=== PATIENT | male | born 1945 | race Caucasian/White ===

== ENCOUNTER 2020-04-27 10:46 | Emergency (ER) | payer MEDICARE, OTHER, SELFPAY ==
[2020-04-27] VITALS (11 sets, daily range): BP systolic 108–128; BP diastolic 62–99; PULSE 69–96; RESP 12–30; O2SAT 90–99; BMI 56.5
--- NOTE | 2020-04-27 11:02 | XRR_ITS ---
PROCEDURE INFORMATION: Exam: XR Chest, 1 View Exam date and time: 04/27/2020 11:18 AM Age: 74 years old Clinical indication: Dyspnea; Patient HX: Covid precautions TECHNIQUE: Imaging protocol: XR of the chest Views: 1 view. COMPARISON: CR Chest 1 [place] [id number] 11/04/2017 8:25 PM FINDINGS: Lungs: Patchy interstitial and alveolar airspace disease in the right mid lung. Follow-up recommended. Pleural space: Unremarkable. No pleural effusion. No pneumothorax. Heart/Mediastinum: Say cardiomegaly Bones/joints: Unremarkable. XR/XR chest 1V portable [id number] IMPRESSION: Patchy interstitial and alveolar airspace disease in the right mid lung. Follow-up recommended. Consider CT if indicated
--- NOTE | 2020-04-27 11:03 | ECG_ITS ---
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 Measurements Intervals [place] Rate: 94 P: 101 [place]: 164 QRS: -53 QRSD: 146 T: 47 QT: 374 QTc: 468 Interpretive Statements SINUS RHYTHM WITH OCCASIONAL VENTRICULAR PREMATURE COMPLEXES WITH FREQUENT SUPRAVENTRICULAR PREMATURE COMPLEXES LEFT AXIS DEVIATION [QRS AXIS < -30] INTRAVENTRICULAR CONDUCTION DELAY [130+ ms QRS DURATION] WARNING: DATA QUALITY MAY AFFECT INTERPRETATION Compared to ECG 11/06/2017 06:02:44 Ventricular premature complex(es) now present Intraventricular conduction delay now present Sinus bradycardia no longer present Left bundle-branch block no longer present Electronically Signed On 04-27-2020 18:31:01 CDT by Rishabh Patel M.D. [email or web address].Fleet Management HoldingOtterologytrinity [facility].Exabre/store/NU/[id number] f
[2020-04-27 11:28] LABS: Basophils % 0.3 %; Eosinophils # 0.1 10^3/uL (0.0-0.8); Eosinophils % 0.6 %; Hematocrit 41.9 % (42.0-52.0); Hemoglobin 12.2 g/dL (11.7-16.6); Lymphocytes # 1.3 10^3/uL (0.8-4.8); Lymphocytes % 16.6 %; Mean Corpuscular HGB Conc 29.1 g/dL (30.0-36.0); Mean Corpuscular Hemoglobin 30.3 pg (28.0-34.0); Mean Corpuscular Volume 104.2 fL (80-94); Mean Platelet Volume 11.1 fL (7.4-10.4); Monocytes # 0.6 10^3/uL (0.2-0.9); Neutrophils # 5.87 10^3/uL (1.8-7.7); Neutrophils % 74.2 %; Nucleated Red Blood Cells % 0 %; Platelet Count 221 10^3/cmm (130-400); Red Blood Count 4.02 10^6/uL (4.1-5.3); Red Cell Distribution Width 13.2 % (12.1-15.1); White Blood Count 7.9 10^3/uL (4.0-10.0)
[2020-04-27 11:31] LABS: ABG PH Result 7.24 (7.35-7.45); Arterial Blood Gas Hematocrit 38.4 % (42-52); Base Excess ABG 14.5 mmol/L (-2.0-2.0); Blood Gas Allen Test Pos; Blood Gas Operator Identificat ED; Blood Gas Sample Site Radial, right; Blood Gas Sample Type Arterial; HCO3 ABG 46.4 mmol/L (22-26); Oxygen Device NRB
[2020-04-27 11:41] LABS: INR 1.04 (0.8-1.2)
[2020-04-27 11:47] LABS: Lactic Sepsis W/Reflex 0.7 mmol/L (0.5-2.2)
[2020-04-27 11:53] LABS: SARS Covid-2 Antigen Negative (Negative)
[2020-04-27 11:56] LABS: Troponin(5th) Baseline 22 ng/L (0-15)
[2020-04-27 12:03] LABS: Alanine Aminotransferase 24 U/L (0-41); Alkaline Phosphatase 66 IU/L (40-130); Anion Gap 10.9 (5-19); Aspartate Amino Transferase 23 U/L (0-40); Blood Urea Nitrogen 24 mg/dL (8-23); Calcium 9.1 mg/dL (8.5-10.5); Chloride 97 mmol/L (98-107); Globulin 3.7 g/dL (1.3-4.6); Glucose 120 mg/dL (65-115); NT Pro B Type Natriuretic Pept 823 pg/mL (0-125); Osmolality Calculated 307 mOsm/kg (285-295); Potassium 4.9 mmol/L (3.5-5.1); Sodium 146 mmol/L (136-145); Total Bilirubin 0.3 mg/dL (0.15-1.2); Total Protein 7.7 g/dL (6.6-8.7)
[2020-04-27 12:05] LABS: Carbon Dioxide 43 mmol/L (22-29)
[2020-04-27 12:26] LABS: Procalcitonin 0.04 ng/mL (0-0.5)
[2020-04-27 12:36] LABS: C Reactive Protein 33.4 mg/L (0.0-4.9)
--- NOTE | 2020-04-27 13:03 | ECG_ITS ---
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 Measurements Intervals [place] Rate: 71 P: 183 [place]: 152 QRS: -20 QRSD: 135 T: 152 QT: 371 QTc: 404 Interpretive Statements SINUS RHYTHM INTRAVENTRICULAR CONDUCTION DELAY [130+ ms QRS DURATION] POSSIBLE ANTERIOR MYOCARDIAL INFARCTION , OF INDETERMINATE AGE [30 ms Q WAVE IN V3/V4, OR R < 0.2 mV IN V4] Compared to ECG 04/27/2020 12:34:18 Myocardial infarct finding now present Ventricular premature complex(es) no longer present Left-axis deviation no longer present Electronically Signed On 04-27-2020 18:38:38 CDT by Rishabh Patel M.D. [email or web address].Targeted Technologiesgreene county hospitalSodaStreamashtabula [facility] hospital.Meshify/store/OM/[id number]
[2020-04-27 13:19] LABS: ABG PH Result 7.28 (7.35-7.45); Arterial Blood Gas Hematocrit 38.7 % (42-52); Base Excess ABG 15.8 mmol/L (-2.0-2.0); Blood Gas Allen Test Pos; Blood Gas Sample Type Arterial; PO2 ABG 79.9 mmHg (80.0-100.0)
[2020-04-27 13:21] LABS: Blood Gas Operator Identificat ED; Blood Gas Sample Site Radial, left; Oxygen Device BIPAP
[2020-04-27 13:29] LABS: Troponin 5 2HR 23.06 ng/L (0-15); Troponin 5 2HR Delta 1.06 ABS# (0-10)
[2020-04-27] MEDS: succinylcholine 20 mg/mL SDV 10mL IVP (13:46)
[2020-04-27 13:48] LABS: Influenza A by IFA Negative (Negative); Influenza B by IFA Negative (Negative)
[2020-04-27] MEDS: vecuronium 10 mg SDV IVP (13:48)
[2020-04-27] MEDS: piperacillin-tazobactam 3.375 GM in sodium chloride 0.9% (plus) 50 ML IV (14:16)
[2020-04-27] MEDS: propofol 1,000 MG/100 ML INJ 9.5 MG IV (14:19)
--- NOTE | 2020-04-27 14:25 | ED_ITS ---
HPI - Altered Mental Status General: Chief Complaint: Altered Mental Status Stated Complaint: AMS, HYPOXIA Time Seen by Provider: 04/27/20 10:56 History of Present Illness: HPI narrative: This patient is a 74-year-old gentleman brought in today by EMS after his called. He has been having increasing shortness of breath and low oxygen levels. His mental status has continued to decrease over the past few days. His says she has continued to turn up his oxygen from his prescribed 3 L/min. She said he has had sepsis and pneumonia and COPD exacerbations in the past which have presented similarly to this. He has not had a fever. He has had some cough. He is a diabetic and his blood sugars have been running low. She has not given him his insulin in the past few days because of blood sugars in the 40s and 50s at times. MD complaint: altered mental status, decreased responsiveness and weakness Onset (ago): day(s) (2) Timing confirmed by: spouse Severity: severe Consistency of symptoms: Getting Worse Context: history of similar presentation, COPD and other (pneumonia) Treatments prior to arrival: oxygen Review of Systems General: Reports: ROS unobtainable due to medical condition and ROS unobtainable due to mental status [facility] ED PFSH: Medical History COPD (chronic obstructive pulmonary disease) Diabetes Dyslipidemia HTN (hypertension) Hypothyroidism Obesity ONDINA (obstructive sleep apnea) Oxygen dependent Pulmonary HTN Surgical History S/P angioplasty with stent S/P bariatric surgery Family History (Updated 09/08/19 @ 11:45 by Tracey Figueroa RN) Father Diabetes Hypertension Mother Hypertension Physical Exam Const: EXAM LIMITATIONS: altered mental status GENERAL APPEARANCE: lethargic NUTRITIONAL APPEARANCE: obese morbidly obese ORIENTATION/CONSCIOUSNESS: Yes lethargic HENMT: HEAD & SCALP: normal to inspection FACE & SINUS: normal facial exam Eye: GENERAL EYE: appearance normal, both eyes and all related structures Neck/C-Spine: COMMON NORMALS: supple, no meningeal signs and no JVD Chest: COMMONS NORMALS: normal inspection of the chest Resp: EFFORT & INSPECTION: Yes tachypneic, Yes respiratory distress, Yes labored and Yes uses accessory muscles AUSCULTATION: diminished lung sounds (severely) Cardio: COMMON NORMALS: no JVD, regular rate, regular rhythm and No murmurs present (Cardio) RATE: regular rate RHYTHM: regular rhythm GI: COMMON NORMALS: Normal to inspection, nondistended, normoactive bowel sounds present, Soft to palpation and non-tender INSPECTION: Yes normal to inspection AUSCULTATION: Yes normoactive bowel sounds PALPATION: Yes Soft to palpation Back/Pelvis: COMMON NORMALS: thoracic and lumbar spine normal to inspection Extremity: COMMON NORMALS: normal to inspection Neuro: SHERRY COMA SCALE: document GCS findings [place] [employer] coma scale eye opening: To sound Sherry coma scale verbal response: Confused Sherry coma scale motor response: Obey commands [place] [employer] coma scale total score: 13 COMMON NORMALS: moves all extremities, no focal motor deficits and no sensory deficits noted SENSORIUM/ORIENTATION: Yes lethargic MENINGEAL SIGNS: Yes no meningeal signs Psych: COMMON NORMALS: mental status grossly normal, cooperative and normal affect Skin: COMMON NORMALS: no rashes or lesions noted and turgor normal GENERAL SKIN EXAM: no rashes or lesions noted and turgor normal Urinary Catheter Management^: Estevez: Cath Placed During This Visit: yes Urinary Catheter Date of Insertion: 04/27/20 Urinary Catheter Time of Insertion: 14:15 Course ED course: Patient was ruled out for COVID. He was placed on BiPAP due to his decreasing mental status and a very high CO2 on his ABG. After about 2 hours on the BiPAP he had not had very significant improvement either at his mental status or in the level of CO2. Discussed this with his and she discussed it with the patient who seemed to understand what she was asking. He agreed to be put on the ventilator. Because we have no beds here working up to transfer him to another facility for ICU care. The intubation was done by Dr. Kemp, the hospitalist here. An 8.0 tube was placed without difficulty. Reevaluation(s): Reevaluation #1: Patient was taken by Naman Hicks at 8 PM. He had done well in the ED. His vital signs remained good on the ventilator. He was sedated with propofol and fentanyl drips. He was given IV antibiotics- Zosyn and vancomycin. He was accepted to the ICU at [facility] by Dr. Kemp. Vital Signs: Vital signs: Vital Signs Pulse Rate 80 04/27/20 19:00 Respiratory Rate 16 04/27/20 19:32 Blood Pressure 113/70 04/27/20 19:00 Pulse Oximetry 99 04/27/20 19:32 MDM - Altered Mental Status Lab Data: Labs: Lab Results 04/27/20 04/27/20 04/27/20 Range/Units 11:02 11:20 11:20 WBC 7.9 (4.0-10.0) 10^3/ uL RBC 4.02 L (4.1-5.3) 10^6/u L Hgb 12.2 (11.7-16.6) g/dL Hct 41.9 L (42.0-52.0) % MCV 104.2 H (80-94) fL MCH 30.3 (28.0-34.0) pg MCHC 29.1 L (30.0-36.0) g/dL RDW 13.2 (12.1-15.1) % Plt Count 221 (130-400) 10^3/c mm MPV 11.1 H (7.4-10.4) fL Neut % (Auto) 74.2 % Lymph % (Auto) 16.6 % [place] % (Auto) 8.0 % Eos % (Auto) 0.6 % Baso % (Auto) 0.3 % Neut # (Auto) 5.87 (1.8-7.7) 10^3/u L Lymph # (Auto) 1.3 (0.8-4.8) 10^3/u L [place] # (Auto) 0.6 (0.2-0.9) 10^3/u L Eos # (Auto) 0.1 (0.0-0.8) 10^3/u L Baso # (Auto) 0.0 (0.0-0.1) 10^3/u L Nucleated RBC % (a uto) 0 % Nucleated RBCs # 0.0 /100WBC PT (12.1-14.9) SECO NDS INR (0.8-1.2) D-Dimer (0-0.59) ug/mIFE U Specimen Type Arterial Sample Site Radial, right ABG pH 7.24 L (7.35-7.45) ABG pCO2 107.0 H* (35-45) mmHg ABG pO2 111.0 H (80.0-100.0) mmH g ABG HCO3 46.4 H (22-26) mmol/L ABG Base Excess 14.5 H (-2.0-2.0) mmol/ L Onesimo Test Pos Hematocrit 38.4 L (42-52) % O2 Delivery Device Nrb O2 Liters/Min 15.0 % FiO2 100.0 % Tidal Volume CPAP cmH20 Circular Knitter Helper ID Ed Sodium (136-145) mmol/L Potassium (3.5-5.1) mmol/L Chloride (98-107) mmol/L Carbon Dioxide (22-29) mmol/L Anion Gap (5-19) BUN (8-23) mg/dL Creatinine (0.7-1.2) mg/dL GFR Calculation Glucose (65-115) mg/dL Calculated Osmolal ity (285-295) mOsm/k g Lactic Acid (0.5-2.2) mmol/L Calcium (8.5-10.5) mg/dL Total Bilirubin (0.15-1.2) mg/dL AST (0-40) U/L ALT (0-41) U/L Alkaline Phosphata se (40-130) IU/L Troponin T Baselin e (0-15) ng/L Troponin T 120 Min [place] (0-15) ng/L Delta Troponin T (0-10) ABS# C-Reactive Protein (0.0-4.9) mg/L NT-Pro-B Natriuret Pep (0-125) pg/mL Total Protein (6.6-8.7) g/dL Albumin (3.5-5.2) g/dL Globulin (1.3-4.6) g/dL Procalcitonin (0-0.5) ng/mL Influenza Type A A g (Negative) Influenza Type B A g (Negative) SARS-CoV-2 Ag (Rap id) Negative (Negative) 04/27/20 04/27/20 04/27/20 Range/Units 11:20 11:20 11:20 WBC (4.0-10.0) 10^3/ uL RBC (4.1-5.3) 10^6/u L Hgb (11.7-16.6) g/dL Hct (42.0-52.0) % MCV (80-94) fL MCH (28.0-34.0) pg MCHC (30.0-36.0) g/dL RDW (12.1-15.1) % Plt Count (130-400) 10^3/c mm MPV (7.4-10.4) fL Neut % (Auto) % Lymph % (Auto) % [place] % (Auto) % Eos % (Auto) % Baso % (Auto) % Neut # (Auto) (1.8-7.7) 10^3/u L Lymph # (Auto) (0.8-4.8) 10^3/u L [place] # (Auto) (0.2-0.9) 10^3/u L Eos # (Auto) (0.0-0.8) 10^3/u L Baso # (Auto) (0.0-0.1) 10^3/u L Nucleated RBC % (a uto) % Nucleated RBCs # /100WBC PT 13.90 (12.1-14.9) SECO NDS INR 1.04 (0.8-1.2) D-Dimer 0.60 H (0-0.59) ug/mIFE U Specimen Type Sample Site ABG pH (7.35-7.45) ABG pCO2 (35-45) mmHg ABG pO2 (80.0-100.0) mmH g ABG HCO3 (22-26) mmol/L ABG Base Excess (-2.0-2.0) mmol/ L Onesimo Test Hematocrit (42-52) % O2 Delivery Device O2 Liters/Min % FiO2 % Tidal Volume CPAP cmH20 Circular Knitter Helper ID Sodium 146 H (136-145) mmol/L Potassium 4.9 (3.5-5.1) mmol/L Chloride 97 L (98-107) mmol/L Carbon Dioxide 43 H* (22-29) mmol/L Anion Gap 10.9 (5-19) BUN 24 H (8-23) mg/dL Creatinine 1.0 (0.7-1.2) mg/dL GFR Calculation Not Reportable Glucose 120 H (65-115) mg/dL Calculated Osmolal ity 307 H (285-295) mOsm/k g Lactic Acid 0.7 (0.5-2.2) mmol/L Calcium 9.1 (8.5-10.5) mg/dL Total Bilirubin 0.3 (0.15-1.2) mg/dL AST 23 (0-40) U/L ALT 24 (0-41) U/L Alkaline Phosphata se 66 (40-130) IU/L Troponin T Baselin e (0-15) ng/L Troponin T 120 Min [place] (0-15) ng/L Delta Troponin T (0-10) ABS# C-Reactive Protein 33.4 H (0.0-4.9) mg/L NT-Pro-B Natriuret Pep 823 H (0-125) pg/mL Total Protein 7.7 (6.6-8.7) g/dL Albumin 4.0 (3.5-5.2) g/dL Globulin 3.7 (1.3-4.6) g/dL Procalcitonin 0.04 (0-0.5) ng/mL Influenza Type A A g (Negative) Influenza Type B A g (Negative) SARS-CoV-2 Ag (Rap id) (Negative) 04/27/20 04/27/20 04/27/20 Range/Units 11:20 12:57 13:00 WBC (4.0-10.0) 10^3/ uL RBC (4.1-5.3) 10^6/u L Hgb (11.7-16.6) g/dL Hct (42.0-52.0) % MCV (80-94) fL MCH (28.0-34.0) pg MCHC (30.0-36.0) g/dL RDW (12.1-15.1) % Plt Count (130-400) 10^3/c mm MPV (7.4-10.4) fL Neut % (Auto) % Lymph % (Auto) % [place] % (Auto) % Eos % (Auto) % Baso % (Auto) % Neut # (Auto) (1.8-7.7) 10^3/u L Lymph # (Auto) (0.8-4.8) 10^3/u L [place] # (Auto) (0.2-0.9) 10^3/u L Eos # (Auto) (0.0-0.8) 10^3/u L Baso # (Auto) (0.0-0.1) 10^3/u L Nucleated RBC % (a uto) % Nucleated RBCs # /100WBC PT (12.1-14.9) SECO NDS INR (0.8-1.2) D-Dimer (0-0.59) ug/mIFE U Specimen Type Sample Site ABG pH (7.35-7.45) ABG pCO2 (35-45) mmHg ABG pO2 (80.0-100.0) mmH g ABG HCO3 (22-26) mmol/L ABG Base Excess (-2.0-2.0) mmol/ L Onesimo Test Hematocrit (42-52) % O2 Delivery Device O2 Liters/Min % FiO2 % Tidal Volume CPAP cmH20 Circular Knitter Helper ID Sodium (136-145) mmol/L Potassium (3.5-5.1) mmol/L Chloride (98-107) mmol/L Carbon Dioxide (22-29) mmol/L Anion Gap (5-19) BUN (8-23) mg/dL Creatinine (0.7-1.2) mg/dL GFR Calculation Glucose (65-115) mg/dL Calculated Osmolal ity (285-295) mOsm/k g Lactic Acid (0.5-2.2) mmol/L Calcium (8.5-10.5) mg/dL Total Bilirubin (0.15-1.2) mg/dL AST (0-40) U/L ALT (0-41) U/L Alkaline Phosphata se (40-130) IU/L Troponin T Baselin e 22 H (0-15) ng/L Troponin T 120 Min [place] 23.06 H (0-15) ng/L Delta Troponin T 1.06 (0-10) ABS# C-Reactive Protein (0.0-4.9) mg/L NT-Pro-B Natriuret Pep (0-125) pg/mL Total Protein (6.6-8.7) g/dL Albumin (3.5-5.2) g/dL Globulin (1.3-4.6) g/dL Procalcitonin (0-0.5) ng/mL Influenza Type A A g Negative (Negative) Influenza Type B A g Negative (Negative) SARS-CoV-2 Ag (Rap id) (Negative) 04/27/20 Range/Units 13:09 WBC (4.0-10.0) 10^3/ uL RBC (4.1-5.3) 10^6/u L Hgb (11.7-16.6) g/dL Hct (42.0-52.0) % MCV (80-94) fL MCH (28.0-34.0) pg MCHC (30.0-36.0) g/dL RDW (12.1-15.1) % Plt Count (130-400) 10^3/c mm MPV (7.4-10.4) fL Neut % (Auto) % Lymph % (Auto) % [place] % (Auto) % Eos % (Auto) % Baso % (Auto) % Neut # (Auto) (1.8-7.7) 10^3/u L Lymph # (Auto) (0.8-4.8) 10^3/u L [place] # (Auto) (0.2-0.9) 10^3/u L Eos # (Auto) (0.0-0.8) 10^3/u L Baso # (Auto) (0.0-0.1) 10^3/u L Nucleated RBC % (a uto) % Nucleated RBCs # /100WBC PT (12.1-14.9) SECO NDS INR (0.8-1.2) D-Dimer (0-0.59) ug/mIFE U Specimen Type Arterial Sample Site Radial, left ABG pH 7.28 L (7.35-7.45) ABG pCO2 99.0 H* (35-45) mmHg ABG pO2 79.9 L (80.0-100.0) mmH g ABG HCO3 47.0 H (22-26) mmol/L ABG Base Excess 15.8 H (-2.0-2.0) mmol/ L Onesimo Test Pos Hematocrit 38.7 L (42-52) % O2 Delivery Device Bipap O2 Liters/Min % FiO2 60.0 % Tidal Volume 0.50 CPAP 10.0 cmH20 Circular Knitter Helper ID Ed Sodium (136-145) mmol/L Potassium (3.5-5.1) mmol/L Chloride (98-107) mmol/L Carbon Dioxide (22-29) mmol/L Anion Gap (5-19) BUN (8-23) mg/dL Creatinine (0.7-1.2) mg/dL GFR Calculation Glucose (65-115) mg/dL Calculated Osmolal ity (285-295) mOsm/k g Lactic Acid (0.5-2.2) mmol/L Calcium (8.5-10.5) mg/dL Total Bilirubin (0.15-1.2) mg/dL AST (0-40) U/L ALT (0-41) U/L Alkaline Phosphata se (40-130) IU/L Troponin T Baselin e (0-15) ng/L Troponin T 120 Min [place] (0-15) ng/L Delta Troponin T (0-10) ABS# C-Reactive Protein (0.0-4.9) mg/L NT-Pro-B Natriuret Pep (0-125) pg/mL Total Protein (6.6-8.7) g/dL Albumin (3.5-5.2) g/dL Globulin (1.3-4.6) g/dL Procalcitonin (0-0.5) ng/mL Influenza Type A A g (Negative) Influenza Type B A g (Negative) SARS-CoV-2 Ag (Rap id) (Negative) Critical Care Time Critical Care Time: Critical Care Time: Yes Total Critical Care Time: 45 Attestation: I provided critical care to this patient in the amount of 45 minutes exclusive of other procedures or other patient care. This involved frequent reevaluations of patient condition, ABG, labs, CXR. Discussion of intubation with . Consultations for transfer. Discharge Plan Discharge Patient Disposition: Xfer Short-Term Hosp Clinical Impression: Acute and chronic respiratory failure with hypercapnia Altered mental status Qualifiers: Altered mental status type: unspecified Qualified Code(s): R41.82 - Altered mental status, unspecified Pneumonia Qualifiers: Pneumonia type: due to unspecified organism Laterality: right Lung location: middle lobe of lung Qualified Code(s): J18.9 - Pneumonia, unspecified organism Condition: Stable Referrals: Jack Camarena MD [Primary Care Provider] - Discharge Date/Time: 04/27/20 19:58 Coding Level of Care Code ED Artificial Flower Maker for g Fwd Exam Comprehensive
--- NOTE | 2020-04-27 17:03 | ECG_ITS ---
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 Measurements Intervals [place] Rate: 78 P: 78 TN: 159 QRS: -62 QRSD: 154 T: 55 QT: 389 QTc: 445 Interpretive Statements SINUS RHYTHM LEFT AXIS DEVIATION [QRS AXIS < -30] LEFT BUNDLE BRANCH BLOCK [120+ ms QRS DURATION, 80+ ms Q/S IN V1/V2, 85+ ms R IN I/aVL/V5/V6] Compared to ECG 04/27/2020 15:04:35 Left-axis deviation now present Left bundle-branch block now present Intraventricular conduction delay no longer present Myocardial infarct finding no longer present Electronically Signed On 04-27-2020 18:39:50 CDT by Rishabh Patel M.D. [email or web address] [facility] Pharmaceuticalsl[facility].BuildCircle/store/OM/[id number]
--- NOTE | 2020-04-27 19:01 | PC.NURSE ---
Report called to Paige Mitchell. Awaiting on EMS
== END 2020-04-27 19:58 | disposition short-term general hospital (02) ==
PROVIDERS: Emergency Provider Emergency Medicine; Family Provider Family Medicine; PCP Family Medicine
DX: R41.82 Altered mental status, unspecified (principal); J18.9 Pneumonia, unspecified organism; J96.22 Acute and chronic respiratory failure with hypercapnia; J44.9 Chronic obstructive pulmonary disease, unspecified; E11.9 Type 2 diabetes mellitus without complications; E78.5 Hyperlipidemia, unspecified; I10 Essential (primary) hypertension
CPT/HCPCS: 12345; 36600; 51702; 71045; 80053; 82803; 83605; 83880; 84145; 84484; 85025; 85378; 85610; 86140; 87040; 87070; 87205; 87426; 87804; 93005; 94002; 94640; 94660; 94799; 96365; 96366; 96375; 96376; 99284; 99285; J0330; J2543; J2704; J3370; J3490; J7050

== ENCOUNTER 2020-05-28 20:54 | Emergency (ER) | payer MEDICARE, OTHER, SELFPAY ==
[2020-05-28 20:56] VITALS: BP 135/85; PULSE 93; RESP 23; TEMP 36.6; O2SAT 99; BMI 54.8
--- NOTE | 2020-05-28 21:05 | PC.NURSE ---
EKG done at 2100 and show to ER doctor
--- NOTE | 2020-05-28 21:33 | XRR_ITS ---
PROCEDURE INFORMATION: Exam: XR Chest, 1 View Exam date and time: 05/28/2020 9:38 PM Age: 74 years old Clinical indication: Shortness of breath; Patient HX: Tight chest, SOB, AGRAWAL, weakness, dizzy; Additional info: Dizzy and SOB TECHNIQUE: Imaging protocol: XR of the chest Views: 1 view. COMPARISON: CR XR chest 1V portable [id number] 04/27/2020 11:05 AM FINDINGS: Lungs: Linear atelectasis or scarring in the left lower lobe. Fullness in the pulmonary vasculature suggesting volume overload in the lungs. Findings in the lungs have improved compared with the previous study. Pleural space: No pleural effusion. No pneumothorax. Heart/Mediastinum: Stable moderate enlargement of the cardiac silhouette. Mediastinal contours are unremarkable. Vasculature: Stable vascular calcifications in the aorta. Stable tortuosity of the aorta. Bones/joints: Unremarkable for age. XR/XR chest 1V portable [id number] IMPRESSION: 1. Fullness in the pulmonary vasculature suggesting volume overload in the lungs. Findings in the lungs have improved compared with the previous study. 2. Incidental/nonacute findings are listed in the report.
--- NOTE | 2020-05-28 21:43 | ECG_ITS ---
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 Measurements Intervals [place] Rate: 88 P: 77 [place]: 180 QRS: -44 QRSD: 162 T: 76 QT: 374 QTc: 454 Interpretive Statements SINUS RHYTHM WITH SINUS ARRHYTHMIA LEFT AXIS DEVIATION [QRS AXIS < -30] LEFT BUNDLE BRANCH BLOCK [120+ ms QRS DURATION, 80+ ms Q/S IN V1/V2, 85+ ms R IN I/aVL/V5/V6] Compared to ECG 04/27/2020 18:10:45 No significant changes Electronically Signed On 05-29-2020 22:08:46 CDT by Joyce Flores M.D. [email or web address].iValidate.[facility].[employer]/store/NU/[id number]
[2020-05-28 21:44] LABS: Basophils % 0.5 %; Eosinophils % 16.3 %; Hematocrit 37.5 % (42.0-52.0); Hemoglobin 11.7 g/dL (11.7-16.6); Lymphocytes # 2.2 10^3/uL (0.8-4.8); Lymphocytes % 36.4 %; Mean Corpuscular HGB Conc 31.2 g/dL (30.0-36.0); Mean Corpuscular Hemoglobin 30.4 pg (28.0-34.0); Mean Corpuscular Volume 97.4 fL (80-94); Mean Platelet Volume 12.3 fL (7.4-10.4); Monocytes # 0.6 10^3/uL (0.2-0.9); Monocytes % 9.9 %; Neutrophils # 2.18 10^3/uL (1.8-7.7); Neutrophils % 36.7 %; Nucleated Red Blood Cells % 0 %; Platelet Count 171 10^3/cmm (130-400); Red Blood Count 3.85 10^6/uL (4.1-5.3); Red Cell Distribution Width 14.2 % (12.1-15.1); White Blood Count 5.9 10^3/uL (4.0-10.0)
--- NOTE | 2020-05-28 21:44 | ED_ITS ---
Documented by User: Darby Humphries MD, [facility] [place]/29/[place] 11:37 HPI - General Adult General: Chief complaint: General Medical Stated complaint: gen weakness Time Seen by Provider: 05/28/20 21:28 Source: patient and family Mode of arrival: EMS Limitations: no limitations History of Present Illness: HPI narrative: Patient is an obese 74-year-old gentleman with a history of hypertension, diabetes, congestive heart failure with ejection fraction of about 25%, atrial fibrillation who was admitted about a month ago at [facility] in [place] where he was managed as a case of pneumonia. At that time he was sick enough to be intubated and was placed in the ICU was for about 12 days. The patient is scheduled for defibrillator placement. For the last few days he has had increased weakness, leg swelling, weight gain, dizziness. The dizziness got much worse tonight. He also had associated headache. He has also had increased orthopnea. Associated symptoms: Reports headache(s) and malaise; Deny dyspnea, nausea, rash, palpitations or vomiting Review of Systems General: Reports: 10 or more systems reviewed and unremarkable except in HPI and below Const: Reports: fatigue and malaise; Denies: fever(s), chills or body aches Eyes: Denies: change in vision or blurry vision ENMT: Denies: throat pain, enlarged tonsils, odynophagia, hoarseness, mouth pain or swelling of lips/tongue Card: Reports: swelling of feet/ankles; Denies: palpitations, irregular heart rhythm or edema Resp: Denies: dyspnea, productive cough or non-productive cough GI: Denies: abdominal pain, nausea or vomiting : Denies: flank pain, dysuria, urinary frequency, urinary urgency or urinary hesitancy Musc: Denies: neck pain, back pain or extremity swelling Skin/Breast: Denies: rash, pruritus or erythema Neuro: Reports: headache(s) and dizziness; Denies: numbness in extremities or weakness in extremities Endo: Denies: polyuria, polydipsia or tired all the time PENDING SALE TO [facility] ED PFSH: Medical History COPD (chronic obstructive pulmonary disease) Diabetes Dyslipidemia HTN (hypertension) Hypothyroidism Obesity ONDINA (obstructive sleep apnea) Oxygen dependent Pulmonary HTN Surgical History S/P angioplasty with stent S/P bariatric surgery Family History Father Diabetes Hypertension Mother Hypertension Physical Exam Const: COMMON NORMALS: no acute distress, average body habitus, patient oriented x3, no limitations, healthy appearing, alert and well nourished HENMT: COMMON NORMALS: normocephalic, atraumatic and moist oral mucous membranes HEAD & SCALP: normocephalic and atraumatic Neck/C-Spine: COMMON NORMALS: full ROM, supple, no meningeal signs, no JVD and No carotid bruits Resp: COMMON NORMALS: normal respiratory effort, No retractions, No use of accessory muscles, clear to auscultation bilaterally and percussion normal AUSCULTATION: clear to auscultation bilaterally and diminished lung sounds PERCUSSION: percussion normal Cardio: COMMON NORMALS: no JVD, regular rate, regular rhythm, S1 normal heart sound present, S2 normal heart sound present, No gallops present (Cardio), No clicks present (Cardio), No murmurs present (Cardio), No rub (Cardio) and Peripheral pulses 2+ throughout RATE: regular rate RHYTHM: regular rhythm HEART SOUNDS: S1 normal heart sound present and S2 normal heart sound present PERIPHERAL PULSES: Peripheral pulses 2+ throughout GI: COMMON NORMALS: Normal to inspection, nondistended, normoactive bowel sounds present, Soft to palpation, non-tender, No hepatosplenomegaly present, no masses and no bruits PALPATION: Yes Soft to palpation and Yes No hepatosplenomegaly present Extremity: COMMON NORMALS: normal to inspection, full ROM, capillary refill normal and no calf tenderness GENERAL: Yes edema Neuro: COMMON NORMALS: patient oriented x3 SENSORIUM/ORIENTATION: Yes alert MENINGEAL SIGNS: Yes no meningeal signs Skin: COMMON NORMALS: no rashes or lesions noted, no wounds, turgor normal, no jaundice, no petechiae and no mottling GENERAL SKIN EXAM: no rashes or lesions noted and turgor normal Course Vital Signs: Vital signs: Vital Signs Temperature 97.9 F 05/28/20 20:56 Pulse Rate 78 05/29/20 00:56 Respiratory Rate 18 05/29/20 00:56 Blood Pressure 142/83 05/29/20 00:56 Pulse Oximetry 98 05/29/20 00:56 [facility] - General Adult Lab Data: Labs: Lab Results 05/28/20 05/28/20 05/28/20 Range/Units 21:00 21:00 21:00 WBC 5.9 (4.0-10.0) 10^3/ uL RBC 3.85 L (4.1-5.3) 10^6/u L Hgb 11.7 (11.7-16.6) g/dL Hct 37.5 L (42.0-52.0) % MCV 97.4 H (80-94) fL MCH 30.4 (28.0-34.0) pg MCHC 31.2 (30.0-36.0) g/dL RDW 14.2 (12.1-15.1) % Plt Count 171 (130-400) 10^3/c mm MPV 12.3 H (7.4-10.4) fL Neut % (Auto) 36.7 % Lymph % (Auto) 36.4 % Radford % (Auto) 9.9 % Eos % (Auto) 16.3 % Baso % (Auto) 0.5 % Neut # (Auto) 2.18 (1.8-7.7) 10^3/u L Lymph # (Auto) 2.2 (0.8-4.8) 10^3/u L Radford # (Auto) 0.6 (0.2-0.9) 10^3/u L Eos # (Auto) 1.0 H (0.0-0.8) 10^3/u L Baso # (Auto) 0.0 (0.0-0.1) 10^3/u L Nucleated RBC % (a uto) 0 % Nucleated RBCs # 0.0 /100WBC Sodium 139 (136-145) mmol/L Potassium 4.7 (3.5-5.1) mmol/L Chloride 99 (98-107) mmol/L Carbon Dioxide 28 (22-29) mmol/L Anion Gap 16.7 (5-19) BUN 17 (8-23) mg/dL Creatinine 1.1 (0.7-1.2) mg/dL GFR Calculation Not Reportable Glucose 198 H (65-115) mg/dL Calculated Osmolal ity 295 (285-295) mOsm/k g Calcium 9.5 (8.5-10.5) mg/dL Magnesium 2.4 H (1.7-2.3) mg/dL Total Bilirubin 0.2 (0.15-1.2) mg/dL AST 24 (0-40) U/L ALT 17 (0-41) U/L Alkaline Phosphata se 73 (40-130) IU/L Troponin T Gen 5 n g/L Cancelled Troponin T Baselin e (0-15) ng/L Troponin T 120 Min [place] (0-15) ng/L Delta Troponin T (0-10) ABS# NT-Pro-B Natriuret Pep (0-125) pg/mL Total Protein 6.6 (6.6-8.7) g/dL Albumin 3.9 (3.5-5.2) g/dL Globulin 2.7 (1.3-4.6) g/dL 05/28/20 05/28/20 05/28/20 Range/Units 21:00 21:00 23:59 WBC (4.0-10.0) 10^3/ uL RBC (4.1-5.3) 10^6/u L Hgb (11.7-16.6) g/dL Hct (42.0-52.0) % MCV (80-94) fL MCH (28.0-34.0) pg MCHC (30.0-36.0) g/dL RDW (12.1-15.1) % Plt Count (130-400) 10^3/c mm MPV (7.4-10.4) fL Neut % (Auto) % Lymph % (Auto) % Radford % (Auto) % Eos % (Auto) % Baso % (Auto) % Neut # (Auto) (1.8-7.7) 10^3/u L Lymph # (Auto) (0.8-4.8) 10^3/u L [place]ford # (Auto) (0.2-0.9) 10^3/u L Eos # (Auto) (0.0-0.8) 10^3/u L Baso # (Auto) (0.0-0.1) 10^3/u L Nucleated RBC % (a uto) % Nucleated RBCs # /100WBC Sodium (136-145) mmol/L Potassium (3.5-5.1) mmol/L Chloride (98-107) mmol/L Carbon Dioxide (22-29) mmol/L Anion Gap (5-19) BUN (8-23) mg/dL Creatinine (0.7-1.2) mg/dL GFR Calculation Glucose (65-115) mg/dL Calculated Osmolal ity (285-295) mOsm/k g Calcium (8.5-10.5) mg/dL Magnesium (1.7-2.3) mg/dL Total Bilirubin (0.15-1.2) mg/dL AST (0-40) U/L ALT (0-41) U/L Alkaline Phosphata se (40-130) IU/L Troponin T Gen 5 n g/L Troponin T Baselin e 41 H (0-15) ng/L Troponin T 120 Min [place] 43.55 H (0-15) ng/L Delta Troponin T 2.55 (0-10) ABS# NT-Pro-B Natriuret Pep 374 H (0-125) pg/mL Total Protein (6.6-8.7) g/dL Albumin (3.5-5.2) g/dL Globulin (1.3-4.6) g/dL Discharge Plan Discharge Patient Disposition: Home Clinical Impression: Lower extremity edema CHF (congestive heart failure) Qualifiers: Heart failure type: unspecified Heart failure chronicity: chronic Qualified Code(s): I50.9 - Heart failure, unspecified Condition: Stable Prescriptions: New metolazone 10 mg tablet 10 mg PO DAILY Qty: 10 RF: 0 No Action calcium 1 tab PO DAILY RF: 0 potassium chloride [Klor-Con 10] 10 mEq tablet extended release 10 meq PO BID RF: 0 pravastatin 20 mg tablet 20 mg PO DAILY RF: 0 carvedilol 25 mg tablet 25 mg PO BID RF: 0 furosemide 80 mg tablet 80 mg PO BID RF: 0 metformin 1,000 mg tablet 1,000 mg PO BID RF: 0 levothyroxine 88 mcg capsule 88 mcg PO DAILY RF: 0 pantoprazole 40 mg tablet,delayed release (DR/EC) 40 mg PO DAILY RF: 0 aspirin [Adult Low Dose Aspirin] 81 mg tablet,delayed release (DR/EC) 81 mg PO DAILY RF: 0 vitamin B complex [B Complex-Vitamin B12] Tablet 1 tab PO DAILY RF: 0 cholecalciferol (vitamin D3) 4,000 unit capsule 4,000 unit PO DAILY RF: 0 insulin lispro [Humalog U-100 Insulin] 100 unit/mL solution 1 sliding scale dose SUBCUT DAILY RF: 0 Lantus U-100 Insulin 100 unit/mL solution See Rx Instructions SUBCUT DAILY RF: 0 nitroglycerin [Nitrostat] 0.4 mg tablet, sublingual 0.4 mg SUBLINGUAL Q5M PRN (Reason: Chest Pain) RF: 0 Discharge Orders: Discharge Order (Routine); Ordered 05/29/20 Ordered By: Henrry Vieira Referrals: Jack Camarena MD [Primary Care Provider] - 4-7 days Discharge Diet: Advance as tolerated and Low Salt Discharge Activity: Increase activity as tolerated Patient Instructions: Heart Failure (ED), Leg Edema (ED) Activity Restrictions/Additional Instructions: Take the prescribed medication for the next 5 days top of your normal medications, then stop it. You may find that elevation of the legs helps significantly with swelling, as can compression stockings. Return for increasing shortness of breath despite treatment, chest discomfort, other concerning symptoms Discharge Date/Time: 05/29/20 00:57 Coding Level of Care Code ED Manager Roofing for Chg Fwd Exam Comprehensive Documented by User: Henrry Vieira DO 05/29/20 01:25 HPI - General Adult General: Chief complaint: General Medical Stated complaint: gen weakness Time Seen by Provider: 05/28/20 21:28 PENDING SALE TO [facility] ED PFSH: Medical History COPD (chronic obstructive pulmonary disease) Diabetes Dyslipidemia HTN (hypertension) Hypothyroidism Obesity ONDINA (obstructive sleep apnea) Oxygen dependent Pulmonary HTN Surgical History S/P angioplasty with stent S/P bariatric surgery Family History Father Diabetes Hypertension Mother Hypertension Course Vital Signs: Vital signs: Vital Signs Temperature 97.9 F 05/28/20 20:56 Pulse Rate 78 05/29/20 00:56 Respiratory Rate 18 05/29/20 00:56 Blood Pressure 142/83 05/29/20 00:56 Pulse Oximetry 98 05/29/20 00:56 MDM - General Adult MDM Narrative: Medical decision making narrative: 74-year-old male checked out to me by Dr. Humphries at shift change. This gentleman has a recent admission at an outside facility for heart failure. He reportedly has an EF of 25% or so. He is on what appears to be 160 mg of Lasix daily. He presents with shortness of breath. His BNP is not significantly elevated at this time. He is not requiring oxygen. he will be given an extra dose of Lasix here, and sent home on metolazone for 5 days to augment his Lasix. He will return for worsening shortness of breath. 82-year-old male with right Lab Data: Labs: Lab Results 05/28/20 05/28/20 05/28/20 Range/Units 21:00 21:00 21:00 WBC 5.9 (4.0-10.0) 10^3/ uL RBC 3.85 L (4.1-5.3) 10^6/u L Hgb 11.7 (11.7-16.6) g/dL Hct 37.5 L (42.0-52.0) % MCV 97.4 H (80-94) fL MCH 30.4 (28.0-34.0) pg MCHC 31.2 (30.0-36.0) g/dL RDW 14.2 (12.1-15.1) % Plt Count 171 (130-400) 10^3/c mm MPV 12.3 H (7.4-10.4) fL Neut % (Auto) 36.7 % Lymph % (Auto) 36.4 % Radford % (Auto) 9.9 % Eos % (Auto) 16.3 % Baso % (Auto) 0.5 % Neut # (Auto) 2.18 (1.8-7.7) 10^3/u L Lymph # (Auto) 2.2 (0.8-4.8) 10^3/u L [place]ford # (Auto) 0.6 (0.2-0.9) 10^3/u L Eos # (Auto) 1.0 H (0.0-0.8) 10^3/u L Baso # (Auto) 0.0 (0.0-0.1) 10^3/u L Nucleated RBC % (a uto) 0 % Nucleated RBCs # 0.0 /100WBC Sodium 139 (136-145) mmol/L Potassium 4.7 (3.5-5.1) mmol/L Chloride 99 (98-107) mmol/L Carbon Dioxide 28 (22-29) mmol/L Anion Gap 16.7 (5-19) BUN 17 (8-23) mg/dL Creatinine 1.1 (0.7-1.2) mg/dL GFR Calculation Not Reportable Glucose 198 H (65-115) mg/dL Calculated Osmolal ity 295 (285-295) mOsm/k g Calcium 9.5 (8.5-10.5) mg/dL Magnesium 2.4 H (1.7-2.3) mg/dL Total Bilirubin 0.2 (0.15-1.2) mg/dL AST 24 (0-40) U/L ALT 17 (0-41) U/L Alkaline Phosphata se 73 (40-130) IU/L Troponin T Gen 5 n g/L Cancelled Troponin T Baselin e (0-15) ng/L Troponin T 120 Min [place] (0-15) ng/L Delta Troponin T (0-10) ABS# NT-Pro-B Natriuret Pep (0-125) pg/mL Total Protein 6.6 (6.6-8.7) g/dL Albumin 3.9 (3.5-5.2) g/dL Globulin 2.7 (1.3-4.6) g/dL 05/28/20 05/28/20 05/28/20 Range/Units 21:00 21:00 23:59 WBC (4.0-10.0) 10^3/ uL RBC (4.1-5.3) 10^6/u L Hgb (11.7-16.6) g/dL Hct (42.0-52.0) % MCV (80-94) fL MCH (28.0-34.0) pg MCHC (30.0-36.0) g/dL RDW (12.1-15.1) % Plt Count (130-400) 10^3/c mm MPV (7.4-10.4) fL Neut % (Auto) % Lymph % (Auto) % Radford % (Auto) % Eos % (Auto) % Baso % (Auto) % Neut # (Auto) (1.8-7.7) 10^3/u L Lymph # (Auto) (0.8-4.8) 10^3/u L [place] # (Auto) (0.2-0.9) 10^3/u L Eos # (Auto) (0.0-0.8) 10^3/u L Baso # (Auto) (0.0-0.1) 10^3/u L Nucleated RBC % (a uto) % Nucleated RBCs # /100WBC Sodium (136-145) mmol/L Potassium (3.5-5.1) mmol/L Chloride (98-107) mmol/L Carbon Dioxide (22-29) mmol/L Anion Gap (5-19) BUN (8-23) mg/dL Creatinine (0.7-1.2) mg/dL GFR Calculation Glucose (65-115) mg/dL Calculated Osmolal ity (285-295) mOsm/k g Calcium (8.5-10.5) mg/dL Magnesium (1.7-2.3) mg/dL Total Bilirubin (0.15-1.2) mg/dL AST (0-40) U/L ALT (0-41) U/L Alkaline Phosphata se (40-130) IU/L Troponin T Gen 5 n g/L Troponin T Baselin e 41 H (0-15) ng/L Troponin T 120 Min [place] 43.55 H (0-15) ng/L Delta Troponin T 2.55 (0-10) ABS# NT-Pro-B Natriuret Pep 374 H (0-125) pg/mL Total Protein (6.6-8.7) g/dL Albumin (3.5-5.2) g/dL Globulin (1.3-4.6) g/dL Discharge Plan Discharge Patient Disposition: Home Clinical Impression: Lower extremity edema CHF (congestive heart failure) Qualifiers: Heart failure type: unspecified Heart failure chronicity: chronic Qualified Code(s): I50.9 - Heart failure, unspecified Condition: Stable Prescriptions: New metolazone 10 mg tablet 10 mg PO DAILY Qty: 10 RF: 0 No Action calcium 1 tab PO DAILY RF: 0 potassium chloride [Klor-Con 10] 10 mEq tablet extended release 10 meq PO BID RF: 0 pravastatin 20 mg tablet 20 mg PO DAILY RF: 0 carvedilol 25 mg tablet 25 mg PO BID RF: 0 furosemide 80 mg tablet 80 mg PO BID RF: 0 metformin 1,000 mg tablet 1,000 mg PO BID RF: 0 levothyroxine 88 mcg capsule 88 mcg PO DAILY RF: 0 pantoprazole 40 mg tablet,delayed release (DR/EC) 40 mg PO DAILY RF: 0 aspirin [Adult Low Dose Aspirin] 81 mg tablet,delayed release (DR/EC) 81 mg PO DAILY RF: 0 vitamin B complex [B Complex-Vitamin B12] Tablet 1 tab PO DAILY RF: 0 cholecalciferol (vitamin D3) 4,000 unit capsule 4,000 unit PO DAILY RF: 0 insulin lispro [Humalog U-100 Insulin] 100 unit/mL solution 1 sliding scale dose SUBCUT DAILY RF: 0 Lantus U-100 Insulin 100 unit/mL solution See Rx Instructions SUBCUT DAILY RF: 0 nitroglycerin [Nitrostat] 0.4 mg tablet, sublingual 0.4 mg SUBLINGUAL Q5M PRN (Reason: Chest Pain) RF: 0 Discharge Orders: Discharge Order (Routine); Ordered 05/29/20 Ordered By: Henrry Vieira Referrals: Jack Camarena MD [Primary Care Provider] - 4-7 days Discharge Diet: Advance as tolerated and Low Salt Discharge Activity: Increase activity as tolerated Patient Instructions: Heart Failure (ED), Leg Edema (ED) Activity Restrictions/Additional Instructions: Take the prescribed medication for the next 5 days top of your normal medications, then stop it. You may find that elevation of the legs helps significantly with swelling, as can compression stockings. Return for increasing shortness of breath despite treatment, chest discomfort, other concerning symptoms Discharge Date/Time: 05/29/20 00:57 Coding Level of Care Code ED Manager Roofing for Chg Fwd Exam Comprehensive
[2020-05-28 21:55] VITALS: BP 140/85; PULSE 80; RESP 18; O2SAT 98
[2020-05-28 22:02] LABS: Alanine Aminotransferase 17 U/L (0-41); Albumin Level 3.9 g/dL (3.5-5.2); Alkaline Phosphatase 73 IU/L (40-130); Blood Urea Nitrogen 17 mg/dL (8-23); Calcium 9.5 mg/dL (8.5-10.5); Carbon Dioxide 28 mmol/L (22-29); Chloride 99 mmol/L (98-107); Globulin 2.7 g/dL (1.3-4.6); Glucose 198 mg/dL (65-115); Magnesium 2.4 mg/dL (1.7-2.3); Osmolality Calculated 295 mOsm/kg (285-295); Sodium 139 mmol/L (136-145); Total Bilirubin 0.2 mg/dL (0.15-1.2); Total Protein 6.6 g/dL (6.6-8.7)
[2020-05-28 22:09] LABS: Anion Gap 16.7 (5-19); Aspartate Amino Transferase 24 U/L (0-40); Potassium 4.7 mmol/L (3.5-5.1)
[2020-05-28 22:16] LABS: Troponin(5th) Baseline 41 ng/L (0-15)
[2020-05-28 22:24] LABS: NT Pro B Type Natriuretic Pept 374 pg/mL (0-125)
--- NOTE | 2020-05-28 23:43 | ECG_ITS ---
[facility] Test Date: 2020-05-28 Pat Name: Fred Lawson Department: Room: Gender: Male Lab Tester: : 1945 Requested By: Darby Humphries I Order Number: [id number] Gilda MD: Joyce Flores M.D. Measurements Intervals [place] Rate: 71 P: 76 OR: 175 QRS: -44 QRSD: 158 T: 68 QT: 400 QTc: 436 Interpretive Statements SINUS RHYTHM LEFT AXIS DEVIATION [QRS AXIS < -30] LEFT BUNDLE BRANCH BLOCK [120+ ms QRS DURATION, 80+ ms Q/S IN V1/V2, 85+ ms R IN I/aVL/V5/V6] Compared to ECG 04/27/2020 18:10:45 No significant changes Electronically Signed On 05-29-2020 22:14:44 CDT by Joyce Flores M.D. [id number]
[2020-05-29 00:23] LABS: Troponin 5 2HR 43.55 ng/L (0-15); Troponin 5 2HR Delta 2.55 ABS# (0-10)
[2020-05-29 00:56] VITALS: BP 142/83; PULSE 78; RESP 18; O2SAT 98
== END 2020-05-29 00:57 | disposition home or self-care (01) ==
PROVIDERS: Family Medicine; Emergency Provider Emergency Medicine; Family Provider Family Medicine; PCP Family Medicine
DX: I11.0 Hypertensive heart disease with heart failure (principal); I50.9 Heart failure, unspecified; R60.0 Localized edema; Z79.82 Long term (current) use of aspirin; Z79.4 Long term (current) use of insulin; J44.9 Chronic obstructive pulmonary disease, unspecified; E11.9 Type 2 diabetes mellitus without complications; E78.5 Hyperlipidemia, unspecified
CPT/HCPCS: 12345; 71045; 80053; 83735; 83880; 84484; 85025; 93005; 96374; 99283

== ENCOUNTER → 2020-06-01 16:17 | Outpatient (BNVA) | payer MEDICARE, OTHER, SELFPAY | PROVIDERS: Family Provider Family Medicine; PCP Family Medicine; Visit Provider Internal Medicine Cardiovascular Disease | DX: I50.9 Heart failure, unspecified (principal) | CPT/HCPCS: 80048 ==

== ENCOUNTER → 2020-06-10 16:02 | Outpatient (BNVA) | payer MEDICARE, OTHER, SELFPAY | PROVIDERS: Family Provider Family Medicine; PCP Family Medicine; Visit Provider Nurse Practitioner Family | DX: I42.8 Other cardiomyopathies (principal) | CPT/HCPCS: 80048 ==

== ENCOUNTER → 2020-06-16 10:22 | Outpatient (BNVA) | payer MEDICARE, OTHER, SELFPAY | PROVIDERS: Family Provider Family Medicine; PCP Family Medicine; Visit Provider Internal Medicine Cardiovascular Disease | DX: E11.9 Type 2 diabetes mellitus without complications (principal); I95.1 Orthostatic hypotension | CPT/HCPCS: 80048 ==

== ENCOUNTER → 2020-06-23 13:39 | Outpatient (BNVA) | payer MEDICARE, OTHER, SELFPAY | PROVIDERS: Family Provider Family Medicine; PCP Family Medicine; Referring Provider Internal Medicine Cardiovascular Disease; Visit Provider Internal Medicine | DX: E03.9 Hypothyroidism, unspecified (principal); E11.22 Type 2 diabetes mellitus with diabetic chronic kidney disease; N18.30 Chronic kidney disease, stage 3 unspecified; E11.40 Type 2 diabetes mellitus with diabetic neuropathy, unspecified; E66.01 Morbid (severe) obesity due to excess calories; Z68.43 Body mass index [BMI] 50.0-59.9, adult; I10 Essential (primary) hypertension | CPT/HCPCS: 99204 ==

== ENCOUNTER → 2020-06-24 16:18 | Outpatient (BNVA) | payer MEDICARE, OTHER, SELFPAY | PROVIDERS: Family Provider Family Medicine; PCP Family Medicine; Visit Provider Nurse Practitioner Family | DX: I42.8 Other cardiomyopathies (principal) | CPT/HCPCS: 80048 ==

== ENCOUNTER → 2020-06-29 09:50 | Outpatient (BNVA) | payer MEDICARE, OTHER, SELFPAY | PROVIDERS: Family Provider Family Medicine; PCP Family Medicine; Visit Provider Internal Medicine Cardiovascular Disease | DX: I10 Essential (primary) hypertension (principal); I42.8 Other cardiomyopathies | CPT/HCPCS: 80048 ==

== ENCOUNTER → 2020-07-26 15:17 | Outpatient (BNVA) | payer MEDICARE, OTHER, SELFPAY | PROVIDERS: Family Provider Family Medicine; PCP Family Medicine; Visit Provider Internal Medicine | DX: E03.9 Hypothyroidism, unspecified (principal); E11.22 Type 2 diabetes mellitus with diabetic chronic kidney disease; N18.30 Chronic kidney disease, stage 3 unspecified; E11.40 Type 2 diabetes mellitus with diabetic neuropathy, unspecified; E66.01 Morbid (severe) obesity due to excess calories; Z68.43 Body mass index [BMI] 50.0-59.9, adult; I10 Essential (primary) hypertension | CPT/HCPCS: 99213 ==

== ENCOUNTER → 2020-09-02 15:38 | Outpatient (BNVA) | payer MEDICARE, OTHER, SELFPAY | PROVIDERS: Family Provider Family Medicine; PCP Family Medicine; Visit Provider Internal Medicine | DX: E03.9 Hypothyroidism, unspecified (principal); N18.30 Chronic kidney disease, stage 3 unspecified; E11.22 Type 2 diabetes mellitus with diabetic chronic kidney disease; E11.42 Type 2 diabetes mellitus with diabetic polyneuropathy; E11.65 Type 2 diabetes mellitus with hyperglycemia; Z79.4 Long term (current) use of insulin; E66.01 Morbid (severe) obesity due to excess calories; Z68.43 Body mass index [BMI] 50.0-59.9, adult | CPT/HCPCS: 99214 ==

== ENCOUNTER → 2020-09-30 17:00 | Outpatient (BNVA) | payer MEDICARE, OTHER, SELFPAY | PROVIDERS: Family Provider Family Medicine; PCP Family Medicine; Visit Provider Nurse Practitioner Family | DX: I42.8 Other cardiomyopathies (principal); R06.02 Shortness of breath | CPT/HCPCS: 80048; 83880 ==

== ENCOUNTER 2020-10-20 10:20 | Outpatient (CLI) | payer MEDICARE, OTHER, SELFPAY ==
[2020-10-20 10:50] LABS: Basophils % 0.4 %; Eosinophils # 0.4 10^3/uL (0.0-0.8); Eosinophils % 7.2 %; Hemoglobin 12.5 g/dL (11.7-16.6); Lymphocytes # 1.8 10^3/uL (0.8-4.8); Mean Corpuscular HGB Conc 32.9 g/dL (30.0-36.0); Mean Corpuscular Hemoglobin 31.3 pg (28.0-34.0); Mean Platelet Volume 10.9 fL (7.4-10.4); Monocytes # 0.5 10^3/uL (0.2-0.9); Neutrophils # 2.65 10^3/uL (1.8-7.7); Neutrophils % 48.8 %; Nucleated Red Blood Cells % 0 %; Platelet Count 182 10^3/cmm (130-400); White Blood Count 5.4 10^3/uL (4.0-10.0)
[2020-10-20 11:06] LABS: Anion Gap 12.1 (5-19); Blood Urea Nitrogen 37 mg/dL (8-23); Calcium 10.2 mg/dL (8.5-10.5); Chloride 89 mmol/L (98-107); Glucose 84 mg/dL (65-115); Osmolality Calculated 300 mOsm/kg (285-295); Potassium 3.1 mmol/L (3.5-5.1); Sodium 141 mmol/L (136-145)
[2020-10-20 11:19] LABS: Carbon Dioxide 43 mmol/L (22-29)
== END 2020-10-20 10:21 | disposition home or self-care (01) ==
LOC: LAB 10:27
PROVIDERS: PCP Family Medicine; Visit Provider Nurse Practitioner Family
DX: R06.02 Shortness of breath (principal); I42.8 Other cardiomyopathies
CPT/HCPCS: 36415; 80048; 85025; 87635

== ENCOUNTER 2020-10-25 09:14 | Inpatient (IN) | payer MEDICARE, OTHER, SELFPAY ==
[2020-10-22 12:01] VITALS: BMI 58.6
[2020-10-25] VITALS (25 sets, daily range): BP systolic 104–149; BP diastolic 47–90; PULSE 82–119; RESP 5–28; TEMP 36.2; O2SAT 95–99; BMI 58.6
--- NOTE | 2020-10-25 06:00 | XACV_ITS ---
Exam Room: 1 Ht: 168 cm Wt: 165 kg BSA: 2.88 m2 Gender: Male : 1945 Any Known Allergies: No known allergies Exam Priority: Routine Procedure(s): Procedure Description: Diagnostic procedure Procedure Description: Right Heart Catheterization Procedure Description: O2 saturation Conclusions 1. Right heart cath#1 Pulmonary capillary wedge pressure (missing, tech error)#2 PA mean 39 mm Hg#3 RA mean 13 mm HgNo significant stepup notedNormal cardiac output of 5 L/min by Amelia and cardiac index of 2.0. Recommendations * Usual post cath care. Pressures Phase:Rest RV : 52 / 11 / @ 3:27:00 AM PA : 50 / 30 ( 39 ) @ 3:26:00 AM RA : a wave = v wave = mean = 13 @ 3:29:00 AM a wave = v wave = mean = 11 @ 3:29:00 AM O2 Content Phase:Rest PA : O2 Content O2: 52.6 @ 3:26:00 AM Saturations Phase:Rest AO : 89 @ 3:29:00 AM RA : 44 @ 3:29:00 AM RV : 50 @ 3:29:00 AM PA : 53 @ 3:26:00 AM Cardiac Output Phase:Rest Amelia : 5 @ 3:26:00 AM Amelia Cardiac Index: 2 @ 3:26:00 AM Clinical Evaluation EBL: 5mL-10mL Procedural Details Procedure Consent Obtained. Pre-Procedure Time Out. Identified patient by full name and date of as verbalized by the patient/guarantor. Does the consent match the physician's order: Yes. Accurate & Complete Informed Consent: Yes. Inpatient/Outpatient History & Physical on Chart: Yes. If H&P is completed, is and addenduem needed: Yes; If yes, is the addendum complete: N/A. Visualize and Verify Site with Patient/Guarantor: N/A. Relevant Radiology Images available: Yes. Pre-op teaching completed and patient verbalized understanding. The risks, benefits, and alternatives of sedation and/or procedure were discussed by physician. The patient agrees to continue. Procedure started. PERRLA. 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 Lungs clear x 5 lobes. IV Fluids: 0.9% NaCl at KVO. 0 mL infused prior to company laborer. Pre Procedural Pulses: bilateral dorsalis pedis was Doppled. Pre Procedural Pulses: bilateral posterior tibial was Doppled. Pre Procedural Pulses: bilateral radial was 1+. bilateral groins was prepped with chloroprep then draped in the usual sterile fashion. Physician notified. Baseline sample Acquired. HR: 84 BPM. Physician arrived. Physician scrubbed in. Immediate Pre-Procedure Time Out. Correct Patient: Yes; Correct Procedure: Yes; Correct Site: Yes; Correct Patient Position: Yes; Correct Supplies: Yes; Dried Flammable Prep: Yes; Blood Products Available: N/A;. Lidocaine 1% infiltrated to the right groin. Ultrasound called for access assistance. Ultrasound arrived. Venous access obtained with a micropuncture set. Clayton-Babita VIP catheter inserted. Venous sheath flushed and connected to 0.9% NaCl with extension tubing. Pressure measurements obtained. Oximetry samples were obtained. Normal venous range: 60-85%. Normal arterial range: 95-100%. Clayton-Babita out. Sheath(s) sutured into position with 2-0 silk and sterile 4x4's and Op-site applied over the site. No oozing or signs and symptoms of hematoma noted. Post Procedure: Pulses reassessed and unchanged. PERRLA. 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 No VTE prophylaxis required. Medication's Wasted: Lidocaine 1% = 18 mL. Medication's Wasted: Heparin = 2000 units. Medication's Wasted: Other = Versed 1mg Fentanyl 75 mcg. Total IV fluids: 35 mL. Complications: None. Estimated blood loss: 5mL-10mL. Procedure completed. Patient transferred by bed to 1st floor. A Suture was successful obtaining hemostatsis at the Right Femoral vein insertion site. Vital chart was stopped. Access Site Site: Right Femoral vein Sheath Size: 8 Fr Hemostasis Method: Suture Hemostasis Success: Successful Procedure Medications Start: 8:20 AM Stop: 8:20 AM Medication: Versed 1 mg and Fentanyl 25 mcg Amount: 1 Route: I.V. I, the attending physician, have reviewed and verified all procedure medications. Yes, all medications given per verbal order History/Risk Factors Hypertension: Yes Dyslipidemia: No Peripheral Arterial Disease (PAD): No Myocardial Infarction (TX): No Obesity: No Renal Disease: No Prior Interventions PCI: No CABG: No Valve Surgery: No Report Signatures Finalized by Sang Merritt MD on 11/07/2020 08:45 PM
[2020-10-25] MEDS: diphenhydrAMINE 50 mg Capsule PO (06:55)
--- NOTE | 2020-10-25 07:30 | W.PM.OPSUD ---
Surgery/Procedure H&P Update DATE OF PROCEDURE: October 25, 2020 DATE H&P PERFORMED: 09/30/20 H&P UPDATE INFORMATION: I have reviewed H&P completed within last 30 days, I have examined patient prior to procedure and No changes to prior documentation PREOP DIAGNOSIS: Worsening of heart failure, right heart cath, shortness of breath unexplain PLANNED PROCEDURE: Operation Date: 10/25/20 07:00 Proposed Procedures p left and right Cardiac Catheterization 37360 I42.9(Bilateral) - Sang Merritt MD PATIENT REASSESSED PRIOR TO SEDATION, WITH NO CHANGE NOTED: Yes PHYSICAL EXAM: alert, oriented x 3 and clear to auscultation bilaterally AIRWAY EVAL/ANESTHESIA PLAN: ASA III, Risks, benefits & alternatives of sedation and/or procedure discussed and Patient agrees to continue as planned
--- NOTE | 2020-10-25 08:05 | USCV_ITS ---
Fred Lawson Age: 75 Gender: M : 1945 Exam Date: 10/25/2020 08:13 Ordering Phys: Sang Merritt MD ([email or web address]) Technologist: David Conklin Exam Location: [facility] [place] Indication: labor arbitrator guide Findings access gained Vein was found to be patent Conclusions Patent vein in the examined area was identified Dr Rishabh Patel MD FAC (Electronically Signed) Final Date: 25 October 2020 18:16 S
--- NOTE | 2020-10-25 10:02 | PC.NURSE ---
Sheath Removal Removed venous sheath from right groin per orders from Dr. Merritt. Pt tolerated well. No S/S of hematoma. Will continue to monitor patient.
--- NOTE | 2020-10-25 14:18 | PC.RESP ---
Pulmonary Rehab information sent to patient.
--- NOTE | 2020-10-25 15:27 | PC.NURSE ---
1400 patient back from bathroom with spouse assist dressed and sitting up in chair patient has taken all monitoring devices off and is anxiously awaiting discharge
--- NOTE | 2020-10-25 15:28 | PC.NURSE ---
patient discharge home self care at this time patient provided with discharge instructions and assisted to private vehicle by staff via wheel chair patient alert oriented and in stable condition upon departure
== END 2020-10-25 15:27 | disposition home or self-care (01) | DRG 287 ==
LOC: CSU 09:14
PROVIDERS: Admitting Provider Internal Medicine Cardiovascular Disease; PCP Family Medicine; Visit Provider Internal Medicine Cardiovascular Disease
PROC: 4A023N6 Measurement of Cardiac Sampling and Pressure, Right Heart, Percutaneous Approach (ICD-10-PCS; principal; 2020-10-25 07:00)
DX: I42.8 Other cardiomyopathies (principal); Z68.43 Body mass index [BMI] 50.0-59.9, adult; I11.0 Hypertensive heart disease with heart failure; I50.9 Heart failure, unspecified; J44.9 Chronic obstructive pulmonary disease, unspecified; E11.9 Type 2 diabetes mellitus without complications; E78.5 Hyperlipidemia, unspecified; E03.9 Hypothyroidism, unspecified; E66.9 Obesity, unspecified; G47.33 Obstructive sleep apnea (adult) (pediatric); Z99.81 Dependence on supplemental oxygen; I27.20 Pulmonary hypertension, unspecified; Z98.84 Bariatric surgery status; Z87.01 Personal history of pneumonia (recurrent)
CPT/HCPCS: 36415; 76937; 93451; C1751; C1769; C1894; J1644; J2250; J3010; J7050; Q0163

== ENCOUNTER → 2020-11-03 11:36 | Outpatient (BNVA) | payer MEDICARE, OTHER, SELFPAY | PROVIDERS: PCP Family Medicine; Visit Provider Nurse Practitioner Family | DX: I42.8 Other cardiomyopathies (principal); R06.02 Shortness of breath; E66.01 Morbid (severe) obesity due to excess calories | CPT/HCPCS: 80048 ==

== ENCOUNTER → 2020-11-26 08:39 | Outpatient (BNVA) | payer MEDICARE, OTHER, SELFPAY | PROVIDERS: PCP Family Medicine; Visit Provider Nurse Practitioner Family | DX: Z01.812 Encounter for preprocedural laboratory examination (principal); Z20.822 Contact with and (suspected) exposure to COVID-19 | CPT/HCPCS: 87635 ==

== ENCOUNTER 2020-12-01 09:19 | Outpatient (CLI) | payer MEDICARE, OTHER, SELFPAY ==
--- NOTE | 2020-12-01 09:30 | USCV_ITS ---
Fred Lawson Age: 75 Gender: M : 1945 Exam Date: 12/01/2020 09:38 Ordering Phys: Angelina Cali Technologist: David Conklin [place]am [place] [facility] [place]: OTHER CARDIOMYOPATHIES BP: 120 / 82 HR: 83 Rhythm: Sinus Technical Quality: Adequate MEASUREMENTS (Male / Female) Normal Values 2D ECHO LVOT Diameter 2.1 cm LV Ejection Fraction MOD 2C 68.0 % LV Ejection Fraction 2C AL 69.4 % LA Diameter 4.8 cm M-MODE LV Diastolic Diameter MM 5.6 cm 4.2 - 5.9 / 3.9 - 5.3 cm LV Systolic Diameter MM 4.5 cm LV Ejection Fraction MM Teich 39.7 % IVS Diastolic Thickness MM 1.3 cm 0.6 - 1.0 / 0.6 - 0.9 cm IVS Systolic Thickness MM 1.7 cm LVPW Diastolic Thickness MM 1.3 cm 0.6 - 1.0 / 0.6 - 0.9 cm LVPW Systolic Thickness MM 2.6 cm RV Diastolic Diameter MM 1.8 cm Aortic Annulus Diameter 2.8 cm LA Ao Ratio MM 1.8 MV E Point Septal Separation 1.1 cm DOPPLER AV Peak Velocity 147.0 cm/s LVOT Peak Velocity 84.0 cm/s AV Area Cont Eq vti 1.9 cm squared AV Area Cont Eq pk 2.0 cm squared MV Area PHT 5.0 cm squared Mitral E to A Ratio 0.9 MV E' Velocity 62.0 cm/s TR Peak Velocity 114.0 cm/s TR Peak Gradient 5.2 mmHg PV Peak Velocity 66.0 cm/s FINDINGS Left Ventricle Left ventricular cavity not well visualized. Moderately decreased left ventricular systolic function. Right Ventricle Right ventricle not well visualized. Right Atrium Right atrium not well visualized. Left Atrium Left atrium not well visualized. Mitral Valve Thickened mitral valve. Aortic Valve Aortic valve not well visualized. No aortic valve stenosis. Tricuspid Valve Tricuspid valve not well visualized. Pulmonic Valve Pulmonic valve not well visualized. No pulmonary valve stenosis. Pericardium No pericardial effusion. Aorta Aorta not well visualized. CONCLUSIONS 1. This is a technically very difficult study inspite of ultrasound enhancing agent Optison. 2. Moderately decreased left ventricular systolic function. This study is inadequate for estimation of regional wall motion normality. 3. Alternate modality for assessment of left ventricular systolic function is recommended. Joyce Flores MD (Electronically Signed) Final Date: 01 December 2020 16:39 S
[2020-12-01] MEDS: perflutren protein-a microsphr 0.22 mg/mL SDV 3 mL IV (10:16)
== END 2020-12-01 09:20 | disposition home or self-care (01) ==
LOC: US 09:24
PROVIDERS: PCP Family Medicine; Visit Provider Nurse Practitioner Family
DX: I42.8 Other cardiomyopathies (principal)
CPT/HCPCS: C8929; Q9956

== ENCOUNTER 2020-12-02 12:40 | Outpatient (CLI) | payer MEDICARE, OTHER, SELFPAY ==
--- NOTE | 2020-12-02 14:31 | PFTS_ITS ---
Date of Study:12/02/20 Date of Dictation: 12/02/2020 MECHANICS: Post bronchodilator forced vital capacity (FVC) is reduced Post bronchodilator forced expiratory volume in one second (FEV1) is moderately reduced 71%. FEV1/FVC is normal. There is no significant response to bronchodilators. FLOW VOLUME LOOP: Normal . LUNG VOLUMES: Not measured DIFFUSING CAPACITY FOR CARBON MONOXIDE: Not measured . INTERPRETATION: The spirometry suggestive of restrictive pattern. There is no significant response to bronchodilators however looking at mid flow measurements FEF 25-75% there is significant response suggesting small airway obstruction. Recommended to do full PFTs with lung volumes to differentiate restrictive lung disease and mixed ventilatory disease, if clinically indicated. MTDD
== END 2020-12-02 12:41 | disposition home or self-care (01) ==
PROVIDERS: PCP Family Medicine; Visit Provider Nurse Practitioner Family
DX: R06.02 Shortness of breath (principal); E66.01 Morbid (severe) obesity due to excess calories
CPT/HCPCS: 94060; J7611

== ENCOUNTER → 2021-01-20 10:25 | Outpatient (BNVA) | payer MEDICARE, OTHER, SELFPAY | PROVIDERS: PCP Family Medicine; Referring Provider Internal Medicine Cardiovascular Disease; Visit Provider Internal Medicine Cardiovascular Disease | DX: Z01.818 Encounter for other preprocedural examination (principal); Z20.822 Contact with and (suspected) exposure to COVID-19 | CPT/HCPCS: 87635 ==

== ENCOUNTER 2021-01-24 12:00 | Outpatient (CLI) | payer MEDICARE, OTHER, SELFPAY | END 2021-01-24 12:01 | disposition home or self-care (01) | LOC: SLEEP 01-25 09:43 | PROVIDERS: PCP Family Medicine; Visit Provider Family Medicine | DX: G47.10 Hypersomnia, unspecified (principal) | CPT/HCPCS: G0399 ==

== ENCOUNTER 2021-01-26 09:45 | Day surgery (SDC) | payer MEDICARE, OTHER, SELFPAY ==
[2021-01-24 09:08] VITALS: BMI 61.5
[2021-01-26] VITALS (7 sets, daily range): BP systolic 98–170; BP diastolic 72–108; PULSE 83–130; RESP 20–22; TEMP 36.1–36.6; O2SAT 92–95
--- NOTE | 2021-01-26 10:00 | ANES.PREANE2 ---
Pre-Anesthetic Assessment Pre-Anesthetic Assessment: Height/Weight: Height 1.65 m Weight 167.829 kg Preop Diagnosis: Worsening of heart failure, right heart cath, shortness of breath unexplain Proposed Procedure: Operation Date: 01/26/21 11:30 Proposed Procedures p CIELO(Not Applicable) - Sang Merritt MD Pulmonary: Pulmonary: COPD, [place] (severe) and Sleep apnea (pickwickian) Comments: PFTs showing restrictive lung disease, Right heart cath showing pulmonary HTN. Now on O2 CV/HEM: CV/HEM: Afib, CAD and CHF Comments: Patient had normal coronary arteries in may of 2020 was sent to pulmonology. Concern for increasing weight with edema of legs and CHF. TTE was unsuccesful in showing adequate windows to assess for heart failure. Harrison Cath Conclusions 1. Right heart cath#1 Pulmonary capillary wedge pressure (missing, tech error)#2 PA mean 39 mm Hg#3 RA mean 13 mm HgNo significant stepup notedNormal cardiac output of 5 L/min by Amelia and cardiac index of 2.0. Metabolic: Metabolic: DM, Morbid obesity and Thyroid Anesthetic Plan: ASA status: 4 Risk of > 500 ml blood loss (7ml/kg in children): No PFSH Anesthesia PFSH: Medical History Cardiomyopathy COPD (chronic obstructive pulmonary disease) Diabetes Dyslipidemia HTN (hypertension) Hypothyroidism Obesity ONDINA (obstructive sleep apnea) Oxygen dependent Pulmonary HTN Surgical History S/P bariatric surgery Gastric bypass Family History Father Diabetes Hypertension Mother Hypertension Social History Smoking and tobacco status: never smoked Second hand smoke exposure: No Smoking risk assessment/counseling performed?: No Alcohol intake: never Counseling given: No Counseling given: No Lives independently: Yes Household members: spouse Marital status: Current occupational status: retired History of recent travel: No Data Anesthesia Cardiac Studies: Echocardiogram 12/01/20
[2021-01-26 11:15] LABS: Glucose Point of Care 339 mg/dL (70-110)
[2021-01-26] MEDS: insulin regular-human 100 units/1 mL 10 UNIT IVP (11:26)
[2021-01-26] MEDS: sodium chloride 0.9% 1,000 ML 30 ML IV (11:26)
--- NOTE | 2021-01-26 11:35 | USCV_ITS ---
Fred Lawson Age: 75 Gender: M : 1945 Exam Date: 01/26/2021 11:42 Ordering Phys: Sang Merritt MD ([email or web address]) Technologist: Cherise Espinoza Exam Location: [facility] – [place] Indication: EF DETERMINATION BP: / HR: Rhythm: Sinus Technical Quality: Adequate MEASUREMENTS (Male / Female) Normal Values Medications Please see anesthesia note Complications None Proc. Components FINDINGS Left Ventricle Moderately increased left ventricular cavity size. Severely decreased left ventricular systolic function. Global left ventricular hypokinesis. Left ventricular ejection fraction is estimated at 22 %. Right Ventricle The right ventricle is normal in size and function. Right Atrium The right atrium is normal in size. Left Atrium The left atrium is normal in size. LA Appendage The LA appendage is normal. IA Septum The interatrial septum is normal. Mitral Valve Mildly thickened mitral valve. Mild mitral annular calcification. No mitral valve stenosis. Trace mitral valve regurgitation. Aortic Valve Moderate aortic valve calcification. No aortic valve stenosis. Trace aortic valve regurgitation. Tricuspid Valve No tricuspid valve stenosis. Mild tricuspid valve regurgitation. Pulmonic Valve Structurally normal pulmonic valve without significant stenosis. There is no pulmonic regurgitation. Pericardium Normal pericardium without effusion. Aorta Normal ascending aorta dimension. CONCLUSIONS 1-Moderately increased left ventricular cavity size. Severely decreased left ventricular systolic function. Global left ventricular hypokinesis. Left ventricular ejection fraction is estimated at 22 %. 2-Mildly thickened mitral valve. Mild mitral annular calcification. No mitral valve stenosis. Trace mitral valve regurgitation. 3-Moderate aortic valve calcification. No aortic valve stenosis. Trace aortic valve regurgitation. 4-No tricuspid valve stenosis. Mild tricuspid valve regurgitation. 5-There is no pericardial effusion. 6-There are no prior echocardiogram studies to compare. Please note that due to instability of the patient exams was Limited and quick Sang Merritt MD (Electronically Signed) Final Date: 26 January 2021 18:37 S
[2021-01-26 12:22] LABS: Glucose Point of Care 314 mg/dL (70-110)
--- NOTE | 2021-01-26 12:44 | P.HP_ITS ---
Same Day Surgery H&P Indication for Procedure/HPI DATE OF PROCEDURE: January 26, 2021 CHIEF COMPLAINT/INDICATIONFOR SURGICAL PROCEDURE: Unable to perform imaging through transthoracic echo in a patient with recurrent heart failure symptoms and morbidly obese PREOP DIAGNOSIS: Unable to imaging the patient recurrent heart failure right- sided failure PLANNED PROCEDRUE: Operation Date: 01/26/21 11:30 Proposed Procedures p CIELO(Not Applicable) - Sang Merritt MD 75-year-old male morbidly obese has been referred for transesophageal echocardiogram as transthoracic echo was inconclusive in determining valvular left ventricle and hemodynamic assessment because of body habitus. He is here for transesophageal echocardiogram. Patient has history of recurrent heart failure right-sided heart failure despite of optimization of medicine. I have explained in detail all risk benefit alternative for the procedure including risk for intubation BiPAP heart failure and worsening of pulmonary hypertension during the procedure. I have explained him the risk for aspiration injury to mouth pharynx and esophagus/stomach. He understand it and would like to proceed with it. Medications/Allergies* Home Medications Medication Instructions Recorded Confirmed Type aspirin 81 mg tablet,delayed 81 mg PO DAILY 09/08/19 01/24/21 History release furosemide 80 mg tablet 80 mg PO BID 09/08/19 01/24/21 History levothyroxine 88 mcg capsule 88 mcg PO DAILY 09/08/19 01/24/21 History nitroglycerin 0.4 mg sublingual 0.4 mg SUBLINGUAL Q5M PRN 09/08/19 01/24/21 History tablet duloxetine 30 mg capsule,delayed 30 mg PO DAILY 06/01/20 01/24/21 History release multivitamin 1 tab PO DAILY 06/01/20 01/24/21 History omega-3 fatty acids 1,000 mg 1,000 mg PO DAILY 06/01/20 01/24/21 History capsule cinnamon bark 500 mg capsule 1,000 mg PO BID cap 07/26/20 01/24/21 History apixaban 5 mg tablet 5 mg PO BID 09/01/20 01/24/21 History Allergies/Adverse Reactions Allergy/AdvReac Type Severity Reaction Status Date / Time No Known Allergies Allergy Verified 12/07/20 09:25 Current Medications: Generic Name Dose Route Start Last Admin Trade Name Freq PRN Reason Stop Dose Admin Sodium Chloride 1,000 mls @ 30 mls/hr 01/26/21 10:30 01/26/21 11:26 Sodium Chloride 0.9% IV 01/27/21 10:29 30 mls/hr .Q24H BRADNI Administration Pertinent History/Comorbid Conditions* Medical History (Updated 12/07/20 @ 09:33 by Mark Schmidt MD) Cardiomyopathy COPD (chronic obstructive pulmonary disease) Diabetes Dyslipidemia HTN (hypertension) Hypothyroidism Obesity ONDINA (obstructive sleep apnea) Oxygen dependent Pulmonary HTN Surgical History (Updated 11/03/20 @ 13:21 by KATYA العلي) S/P bariatric surgery Gastric bypass Family History (Updated 09/08/19 @ 11:45 by Tracey Figueroa RN) Diabetes Father Hypertension Father Mother Social History Smoking and tobacco status: never smoked Second hand smoke exposure: No Smoking risk assessment/counseling performed?: No Alcohol intake: never Counseling given: No Counseling given: No Lives independently: Yes Household members: spouse Marital status: Current occupational status: retired History of recent travel: No Pertinent Exam Findings alert, oriented x 3 and clear to auscultation bilaterally Recommendations Surgery/Procedure today Coding Level of Care Code Acute Sound Effects Manager for Tylerg Carmen
[2021-01-26 14:07] LABS: Alanine Aminotransferase 15 U/L (0-41); Albumin Level 4.1 g/dL (3.5-5.2); Alkaline Phosphatase 50 IU/L (40-130); Blood Urea Nitrogen 14 mg/dL (8-23); Calcium 9.5 mg/dL (8.5-10.5); Carbon Dioxide 33 mmol/L (22-29); Chloride 99 mmol/L (98-107); Globulin 2.6 g/dL (1.3-4.6); Glucose 281 mg/dL (65-115); Osmolality Calculated 301 mOsm/kg (285-295); Sodium 140 mmol/L (136-145); Total Bilirubin 0.3 mg/dL (0.15-1.2); Total Protein 6.7 g/dL (6.6-8.7)
[2021-01-26 14:09] LABS: Anion Gap 12.6 (5-19); Aspartate Amino Transferase 23 U/L (0-40); Potassium 4.6 mmol/L (3.5-5.1)
[2021-01-26] MEDS: labetalol 5 mg/mL SDV 20mL IVP (14:42)
[2021-01-26 14:45] LABS: Glucose Point of Care 331 mg/dL (70-110)
--- NOTE | 2021-01-26 15:42 | ANE.PACU2 ---
Inpatient post-anesthesia follow up: Airway intact: Yes Vital signs: Temperature 97.9 F Pulse Rate 92 Respiratory Rate 20 Blood Pressure 135/80 Pulse Oximetry 95 Oxygen Delivery Me thod Nasal Cannula Oxygen Flow Rate 2 Fraction of Inspir ed Oxygen Hydration adequate: Yes Nausea and vomiting: No Pain level: 1 Mental status: Baseline
== END 2021-01-26 15:31 | disposition home or self-care (01) ==
PROVIDERS: Anesthesiology; PCP Family Medicine; Visit Provider Internal Medicine Cardiovascular Disease
PROC: (CPT 93312; principal; 2021-01-26 11:30)
DX: I70.0 Atherosclerosis of aorta (principal); E66.01 Morbid (severe) obesity due to excess calories; Z68.44 Body mass index [BMI] 60.0-69.9, adult; Z79.82 Long term (current) use of aspirin; J44.9 Chronic obstructive pulmonary disease, unspecified; E11.9 Type 2 diabetes mellitus without complications; E78.5 Hyperlipidemia, unspecified; I11.0 Hypertensive heart disease with heart failure; I50.9 Heart failure, unspecified; E03.9 Hypothyroidism, unspecified; G47.33 Obstructive sleep apnea (adult) (pediatric); Z99.81 Dependence on supplemental oxygen; Z98.84 Bariatric surgery status; Z82.49 Family history of ischemic heart disease and other diseases of the circulatory system; Z83.3 Family history of diabetes mellitus; G47.30 Sleep apnea, unspecified
CPT/HCPCS: 36415; 36416; 80053; 82962; 93312; 93318; 93320; 93325; 96361; 96374; 96375; J1815; J2704; J3010; J3490; J7030

== ENCOUNTER → 2021-06-21 10:38 | Outpatient (BNVA) | payer MEDICARE, OTHER, SELFPAY | PROVIDERS: PCP Family Medicine; Visit Provider Internal Medicine | DX: E11.65 Type 2 diabetes mellitus with hyperglycemia (principal); E11.42 Type 2 diabetes mellitus with diabetic polyneuropathy; E11.22 Type 2 diabetes mellitus with diabetic chronic kidney disease; N18.30 Chronic kidney disease, stage 3 unspecified; E03.9 Hypothyroidism, unspecified; E66.01 Morbid (severe) obesity due to excess calories; Z79.4 Long term (current) use of insulin; Z68.44 Body mass index [BMI] 60.0-69.9, adult | CPT/HCPCS: 99214 ==

== ENCOUNTER 2021-07-14 20:00 | Outpatient (CLI) | payer MEDICARE, OTHER, SELFPAY | END 2021-07-14 20:01 | disposition home or self-care (01) | LOC: SLEEP 07-15 05:32 | PROVIDERS: PCP Family Medicine; Visit Provider Internal Medicine Critical Care Medicine | DX: G47.33 Obstructive sleep apnea (adult) (pediatric) (principal) | CPT/HCPCS: 95811 ==